=== PATIENT | female | born 1995 | race African-American/Black ===

== ENCOUNTER 2019-07-09 21:45 | Emergency (ER) | payer MEDICAID ==
[~2019-07-09] VITALS: Ht 160 cm; Wt 85.0 kg
[2019-07-09] MEDS ORDERED: ACETAMINOPHEN 500MG TABLET PO ONE (23:15)
[2019-07-09] MEDS ORDERED: DIPHENHYDRAMINE 50MG/ML VIAL IV ONE (23:15)
[2019-07-09] MEDS ORDERED: KETOROLAC 15MG/ML VIAL IV ONE (23:15)
[2019-07-09] MEDS ORDERED: METOCLOPRAMIDE HCL 10MG/2ML VIAL IV ONE (23:15)
[2019-07-10 01:31] VITALS: BP 93/50
== END 2019-07-10 01:43 | disposition home or self-care (01) ==
LOC: ER 21:45
DX: G43.109 Migraine with aura, not intractable, without status migrainosus (principal); R03.0 Elevated blood-pressure reading, without diagnosis of hypertension
CPT/HCPCS: 96374; 96375; 99283; J1200; J1885; J2765; Z7610

== ENCOUNTER 2020-08-02 11:00 | Emergency (ER) | payer MEDICAID ==
[~2020-08-02] VITALS: Ht 160 cm; Wt 150.0 kg
[2020-08-02] MEDS ORDERED: ACETAMINOPHEN 325MG TABLET PO STA (11:28)
[2020-08-02 13:30] VITALS: BP 126/82
== END 2020-08-02 14:05 | disposition home or self-care (01) ==
LOC: ER 11:28
DX: B34.9 Viral infection, unspecified (principal); R05 Cough; Z98.890 Other specified postprocedural states; Z20.828 Contact with and (suspected) exposure to other viral communicable diseases
CPT/HCPCS: 71045; 87635; 93005; 99285; C9803